=== PATIENT | male | born 1995 | race Caucasian/White ===

== ENCOUNTER 2017-06-15 01:22 | Emergency (ER) | payer BC ==
[2017-06-15] MEDS ORDERED: NS 1,000 ML IV ONE (01:30)
[2017-06-15] MEDS ORDERED: fentaNYL 100 MCG/2 ML INJ IVP ONE (01:30)
[2017-06-15] MEDS ORDERED: ONDANSETRON 4 MG/2 ML VIAL IVP ONE (01:30)
--- NOTE | 2017-06-15 01:30 | EDPHY ---
H & P Stated Complaint: Hockey puck to throat, painful swallowing Time Seen by Provider: 06/15/17 01:30 HPI/ROS: HPI CHIEF COMPLAINT: Neck pain status post hockey puck hitting chest than neck. HISTORY OF PRESENT ILLNESS: This patient otherwise healthy 21-year-old male, does have significant past medical history for anxiety and depression, he presents emergency room states he got hit in the neck with a hockey puck 11:00 p.m.. 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 He is unsure how fast hockey puck was going however the hockey puck his chest 1st and then flew up into his neck. States he had some mild discomfort 1st. However as the night went on, the pain in his neck become more severe. States he feels anxious. States he has pain when he swallows but no significant trouble swallowing. No stridor. Denies trouble breathing. Denies any other areas of discomfort. He was wearing a mask and a neck chilled however it flew up underneath neck shield. Past Medical History: Anxiety and depression. Past Surgical History: Denies significant surgical history Social History: Denies drugs alcohol tobacco. Family History: Noncontributory ROS REVIEW OF SYSTEMS: A comprehensive 10 point review of systems is otherwise negative aside from elements mentioned in the history of present illness. Exam Constitutional appears well nontoxic no acute distress, triage nursing summary reviewed, vital signs reviewed, awake/alert. Eyes normal conjunctivae and sclera, EOMI, PERRLA. HENT neck: Tender palpation lateral aspects of both neck. Trachea midline. No deviation. No significant tenderness to tracheal hyoid bone. No crepitus. No evidence of swelling or ecchymosis on exam. No stridor. Able swallow appropriately. Able to talk appropriately. No change in phonation. moist mucus membranes, no epistaxis, neck supple/ no meningismus, no raccoon eyes. Respiratory clear to auscultation bilaterally, normal breath sounds, no respiratory distress, no wheezing. Cardiovascular rate normal, regular rhythm, no murmur, no edema, distal pulses normal. Gastrointestinal soft, non-tender, no rebound, no guarding, normal bowel sounds, no distension, no pulsatile mass. Genitourinary no CVA tenderness. Musculoskeletal no midline vertebral tenderness, full range of motion, no calf swelling, no tenderness of extremities, no meningismus, good pulses, neurovascularly intact. Skin pink, warm, & dry, no rash, skin atraumatic. Neurologic awake, alert and oriented x 3, AAOx3, moves all 4 extremities equally, motor intact, sensory intact, CN II-XII intact, normal cerebellar, normal vision, normal speech. Psychiatric normal mood/affect. Heme/Lymph/Immune no lymphadenopathy. Differential Diagnosis: Includes but is not limited to in a particular order neck trauma, blunt force trauma to the neck, tracheal injury, tracheal tree injury, tracheal fracture, neck hematoma, hyoid bone injury, thyroid cartilage injury, neck contusion, chest wall contusion Medical Decision Making: Plan for this patient IV establishment with basic blood work, IV fentanyl 50 mcg for pain control IV Zofran for nausea, x-ray of the chest, CT of the neck with IV contrast rule out significant neck trauma. No evidence of airway compromise at this time. Monitor closely. Re-evaluation: CT scan of the neck with IV contrast soft tissue for trauma; negative for acute traumatic injury. No evidence of fracture of the neck specifically no tracheal injury thyroid cartilage gingerly, and no hematoma. Unremarkable CT scan. [id number]: Re-examination at this time patient is resting comfortably. He has no trouble breathing no trouble swallowing. He states he feels better with pain control. I did reexamine his neck there is no stridor, he is breathing appropriately. There is no obvious signs of trauma or swelling. This happened around 11:00 p.m. Or approximately 40 hr ago. There has been no progression of swelling. His CT scan has been reviewed is unremarkable. He would like to go home. I feel this is reasonable I do not think we need to observe him here any further. This was not direct trauma to his neck. And there is no significant swelling or evidence of trauma on CT. He is able swallow appropriately breathe abruptly. However given that I am allowing to go home he understands if he develops worsening neck pain, swelling, trouble swallowing, trouble breathing he should return emergency room immediately. Source: Patient - Personal History Current Tetanus Diphtheria and Acellular Pertussis (TDAP): Yes - Medical/Surgical History Hx Asthma: No Hx Chronic Respiratory Disease: No Hx Diabetes: No Hx Cardiac Disease: No Hx Renal Disease: No Hx Cirrhosis: No Hx Alcoholism: No Hx HIV/AIDS: No Hx Splenectomy or Spleen Trauma: No Other PMH: asthma. wisdom teeth out - Social History Smoking Status: Never smoked Constitutional: Initial Vital Signs Temperature (C) 36.4 C 06/15/17 01:26 Heart Rate 104 H 06/15/17 01:26 Respiratory Rate 20 06/15/17 01:26 Blood Pressure 144/79 H 06/15/17 01:26 O2 Sat (%) 99 06/15/17 01:26 O2 Delivery Mode Room Air Allergies/Adverse Reactions: No Known Allergies Allergy (Verified 06/15/17 01:24) Home Medications: Medication Instructions Recorded Albuterol 06/12/15 Hydrocodone/APAP 5/325 [[place] 1 tab PO Q6 PRN #10 tab 02/22/16 5/325 (RX)] Ibuprofen [Motrin (*)] 800 mg PO Q6-8PRN #10 tab 06/15/17 Medical Decision Making - Data Points Laboratory Results: Laboratory Results 06/15/17 01:40 06/15/17 01:40 06/15/17 06/15/17 01:40 01:40 WBC 8.31 10^3/uL 10^3/uL (3.80-9.50) RBC 4.95 10^6/uL 10^6/uL (4.40-6.38) Hgb 15.3 g/dL g/dL (13.7-17.5) Hct 41.7 % % (40.0-51.0) MCV 84.2 fL fL (81.5-99.8) MCH 30.9 pg pg (27.9-34.1) MCHC 36.7 g/dL g/dL (32.4-36.7) RDW 12.3 % % (11.5-15.2) Plt Count 188 10^3/uL 10^3/uL (150-400) MPV 10.0 fL fL (8.7-11.7) Neut % (Auto) 70.3 % % (39.3-74.2) Lymph % (Auto) 18.4 % % (15.0-45.0) Braxton % (Auto) 10.3 % % (4.5-13.0) Eos % (Auto) 0.2 % L % (0.6-7.6) Baso % (Auto) 0.6 % % (0.3-1.7) Nucleat RBC Rel Count 0.0 % % (0.0-0.2) Absolute Neuts (auto) 5.83 10^3/uL 10^3/uL (1.70-6.50) Absolute Lymphs (auto) 1.53 10^3/uL 10^3/uL (1.00-3.00) Absolute Monos (auto) 0.86 10^3/uL H 10^3/uL (0.30-0.80) Absolute Eos (auto) 0.02 10^3/uL L 10^3/uL (0.03-0.40) Absolute Basos (auto) 0.05 10^3/uL 10^3/uL (0.02-0.10) Absolute Nucleated RBC 0.00 10^3/uL 10^3/uL (0-0.01) Immature Gran % 0.2 % % (0.0-1.1) Immature Gran # 0.02 10^3/uL 10^3/uL (0.00-0.10) Sodium 143 mEq/L mEq/L (135-145) Potassium 3.8 mEq/L mEq/L (3.5-5.2) Chloride 103 mEq/L mEq/L (97-110) Carbon Dioxide 24 mEq/l mEq/l (22-31) Anion Gap 16 mEq/L mEq/L (8-16) BUN 20 mg/dL mg/dL (7-23) Creatinine 0.9 mg/dL mg/dL (0.7-1.3) Estimated GFR > 60 Glucose 86 mg/dL mg/dL (70-100) Calcium 9.9 mg/dL mg/dL (8.5-10.4) Medications Given: Discontinued Medications Fentanyl (Sublimaze) 50 mcg IVP EDNOW ONE Stop: 06/15/17 01:31 Last Admin: 06/15/17 01:46 Dose: 50 mcg Sodium Chloride (Ns) 1,000 mls @ 0 mls/hr IV EDNOW ONE; Wide Open PRN Reason: Protocol Stop: 06/15/17 01:31 Last Admin: 06/15/17 01:46 Dose: 1,000 mls Ondansetron HCl (Zofran) 4 mg IVP EDNOW ONE Stop: 06/15/17 01:31 Last Admin: 06/15/17 01:46 Dose: 4 mg Departure - Departure Disposition: Home, Routine, Self-Care Clinical Impression: Blunt trauma of neck Qualifiers: Encounter type: initial encounter Qualified Code(s): S19.80XA - Other specified injuries of unspecified part of neck, initial encounter Condition: Good Instructions: Neck Pain (ED), Acute Neck Pain (ED) Additional Instructions: 1. Ice your neck. 2. Anti-inflammatory pain medicine like Tylenol Motrin for pain control. 3. Return emergency room if you have worsening pain, trouble swallowing, trouble breathing or any questions or concerns. Referrals: NONE *PRIMARY CARE P,. [Primary Care Provider] - As per Instructions Prescriptions: Ibuprofen [Motrin (*)] 800 mg PO Q6-8PRN #10 tab
[2017-06-15 01:49] LABS: PLATELET COUNT 188 10^3/uL (150-400)
[2017-06-15] MEDS ORDERED: IOPAMIDOL (ISOVUE-300) 100 ML BTL ONE (02:11)
[2017-06-15 03:18] VITALS: BP 144/89; PULSE 100; RESP 18; O2SAT 98
[2017-06-15 03:44] VITALS: TEMP 98.2
== END 2017-06-15 03:44 | disposition home or self-care (01) ==
DX: S19.80XA Other specified injuries of unspecified part of neck, initial encounter (principal); E86.9 Volume depletion, unspecified; J45.909 Unspecified asthma, uncomplicated; W21.220A Struck by ice hockey puck, initial encounter; Y99.8 Other external cause status; Y93.22 Activity, ice hockey
CPT/HCPCS: 96374; J2405; J3010; Q9967

== ENCOUNTER 2018-03-19 20:52 | Emergency (ER) | payer BC ==
[2018-03-19 20:58] VITALS: BP 136/77
[2018-03-19] MEDS ORDERED: IBUPROFEN 600 MG TAB PO ONE (21:06)
--- NOTE | 2018-03-19 21:08 | EDPHY ---
H & P Stated Complaint: L shoulder pain, hit with hockey puck Source: Patient Exam Limitations: No limitations - Personal History Current Tetanus/Diphtheria Vaccine: Yes Current Tetanus Diphtheria and Acellular Pertussis (TDAP): Yes - Medical/Surgical History Hx Asthma: Yes Hx Chronic Respiratory Disease: No Hx Diabetes: No Hx Cardiac Disease: No Hx Renal Disease: No Hx Cirrhosis: No Hx Alcoholism: No Hx HIV/AIDS: No Hx Splenectomy or Spleen Trauma: No Other PMH: asthma. 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 He reports that he was wearing she then shoulder pads at the time. He reports that he felt immediate, constant, moderate, nonradiating pain. He reports that he has full range of motion but any overhead activities increase the pain. Denies LOC/head injury/neck pain/dizziness/nausea/vomiting/ amnesia. Modifying Factors: None Comment: ROS: A comprehensive 10 system review of systems is otherwise negative aside from elements mentioned in the history of present illness. MEDICAL/SURGICAL/SOCIAL HISTORY: Medical history: Asthma Surgical history: [place] teeth removal Social history: Student at [employer]. Nonsmoker. CONSTITUTIONAL: Physically fit adult white male, awake and alert, no obvious distress HEENT: Atraumatic and normocephalic. NECK: supple EXTREMITIES: 2/2 radial pulses, skirt trimmer strength 5/5, SHOULDER: Mild tenderness over the clavicle no deformity appreciated. Arc test abduction to 180, abduction to 45, horizontal flexion 130, horizontal extension to 45, deltoid strength 5/5. No pain with Neer test/Riddle test (impingement). No Tenderness to palpation over AC joint. DIP/PIP/MCP flexion/extension intact with good light touch sensation. no deformities, no clubbing, no cyanosis or edema. NEUROLOGICAL: no focal neuro deficits. GCS 15. Light touch sensation intact. SKIN: Warm and dry, no erythema. no rash. Good capillary refill. (Jerilyn Machado) Constitutional: Initial Vital Signs Temperature (C) 36.6 C 03/19/18 20:55 Heart Rate 81 03/19/18 20:55 Respiratory Rate 16 03/19/18 20:55 Blood Pressure 136/77 H 03/19/18 20:55 O2 Sat (%) 95 03/19/18 20:55 O2 Delivery Mode Room Air Allergies/Adverse Reactions: No Known Allergies Allergy (Verified 03/19/18 20:53) Home Medications: Medication Instructions Recorded Albuterol 06/12/15 Medical Decision Making - Diagnostics Imaging Results: Imaging Impressions Clavicle X-Ray 03/19/18 20:58 Impression: Negative. ED Course/Re-evaluation: I did not see this patient while he was in the emergency department. However his care was discussed with the PA while the patient was in the department. I agree with treatment plan and management (Nikos Riley) Ice pack applied and given ibuprofen 600 mg with adequate pain relief Clavicle fracture ordered and my read shows no fracture and dislocation advised supportive care No signs of neurovascular compromise/tenting of skin/compartment syndrome/ extremities and joints examined above and below area of concern and are neurovascularly intact. This patient was seen under the supervision of my secondary supervising physician. I evaluated care for this patient independently. Discussed this patient with Dr. Riley who did not see the patient. (Jerilyn Machado) Differential Diagnosis: Shoulder injury differential diagnosis includes but is not limited to clavicle fracture, contusion, AC joint separation, rotator cuff injury, labral tear, humeral head fracture, sprain, scapula fracture. (Jerilyn Machado) - Data Points Medications Given: Discontinued Medications Ibuprofen (Motrin) 600 mg PO EDNOW ONE Stop: 03/19/18 21:07 Last Admin: 03/19/18 21:13 Dose: 600 mg Departure - Departure Disposition: Home, Routine, Self-Care Clinical Impression: Contusion of left clavicle Qualifiers: Encounter type: initial encounter Qualified Code(s): S40.012A - Contusion of left shoulder, initial encounter Condition: Good Instructions: Contusion in Adults (ED) Additional Instructions: Take Tylenol 650 mg every 4 hours and/or Ibuprofen 600 mg every 8 hours with food as needed for pain. Apply ice for 30 minutes at a time; 2-3 times per day for the next 1-2 days. Follow up with Orthopedics in 7-10 days if symptoms persist at which time they will evaluate and recommend with you if conservative management versus further imaging is indicated. The x-rays obtained in the emergency department today demonstrate no evidence of an obvious fracture. Sometimes fractures are not obvious on the initial set of x-rays performed in the ED. For this reason, you should have repeat x-rays performed in 7-10 days if you are having any pain exclude the possibility of an occult fracture. Referrals: Kelly Austin MD [Medical Doctor] - As per Instructions
== END 2018-03-19 21:40 | disposition home or self-care (01) ==
DX: S40.012A Contusion of left shoulder, initial encounter (principal); W21.220A Struck by ice hockey puck, initial encounter; Y93.22 Activity, ice hockey